=== PATIENT | female | born 2000 | race Caucasian/White ===

== ENCOUNTER → 2024-06-16 | Outpatient (CLI) | payer BC, SELFPAY ==
[2024-06-16 17:40] LABS: Mono Screen Negative (Negative)
== END | disposition home or self-care (01) ==
LOC: COPL 16:23
PROVIDERS: PCP Physician Assistant; Referring Provider Physician Assistant; Visit Provider Physician Assistant
DX: J02.9 Acute pharyngitis, unspecified (principal)
CPT/HCPCS: 36415; 86308

== ENCOUNTER → 2024-07-08 | Outpatient (CLI) | payer BC, SELFPAY ==
--- NOTE | 2024-07-08 15:57 | XR_ITS ---
Exam: MRI knee without contrast, left Date and time of exam: July 08, 2024 1505 hours INDICATIONS: Medial anterior knee pain instability clicking in the joint stiffness swelling beginning 10 days ago after following office the left Technique: Multiple axial, coronal, and sagittal sections on the knee have been obtained. T2-Weighted sagittal, fat-suppressed images, TR 3,500, TE 62, T2 weighted coronal fat-saturated images, TR 3,500, TE 62 Proton density sagittal sections, TR 1800, TE 31. T-1 weighted coronal images, TR 524, TE 13.0 Findings: Medial meniscus anterior horn intact. Medial meniscus, body is intact. Posterior horn medial meniscus suspicious for meniscocapsular separation. Lateral meniscus anterior horn is intact Lateral meniscus, body is intact Posterior horn lateral meniscus is intact Anterior cruciate ligament mild sprain Posterior cruciate ligament appears intact. Knee effusion is small. Quadriceps and patellar tendons appear intact. There is no evidence of tendinosis. Inflammatory change or fracture of Hoffa's fat pad is not seen. Medial patellar facet demonstrates no thinning. Lateral patellar facet cartilage demonstrates no thinning. Trochlear cartilage demonstrates no thinning. Marrow signal abnormal, increased signal in the proximal medial tibial metaphyseal region, suspicious for microtrabecular fracture lines Medial collateral ligament appears intact. . Illiotibial band and fibular collateral ligament are intact. Biceps femoris tendons appear intact. Medial femoral condylar articular cartilage demonstrates no thinning. Lateral femoral condylar articular cartilage demonstratesno thinning. Tibial plateau cartilage demonstrates no thinning. Impression: Recommend CT scan of the knee without contrast follow-up to confirm microtrabecular fracture lines involving the proximal medial tibial metaphyseal region Mild sprain anterior cruciate ligament Suspicious for meniscocapsular separation posterior horn medial meniscus
== END | disposition home or self-care (01) ==
PROVIDERS: PCP Nurse Practitioner Family; Referring Provider Nurse Practitioner Family; Visit Provider Nurse Practitioner Family
DX: S82.292A Other fracture of shaft of left tibia, initial encounter for closed fracture (principal); S83.512A Sprain of anterior cruciate ligament of left knee, initial encounter; X58.XXXA Exposure to other specified factors, initial encounter
CPT/HCPCS: 73721

== ENCOUNTER 2024-07-25 08:28 | Outpatient (AMB) | payer BC, SELFPAY ==
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
[2024-07-25 08:37] VITALS: BP 97/66; PULSE 78; RESP 16; TEMP 36.6; O2SAT 97; BMI 27.3
== END 2024-07-25 09:13 | disposition home or self-care (01) ==
PROVIDERS: PCP Physician Assistant; Referring Provider Physician Assistant; Supervising Provider Orthopaedic Surgery Adult Reconstructive Orthopaedic Surgery; Visit Provider Orthopaedic Surgery Adult Reconstructive Orthopaedic Surgery
DX: S83.242A Other tear of medial meniscus, current injury, left knee, initial encounter (principal); V00.328A Other snow-ski accident, initial encounter; Y93.23 Activity, snow (alpine) (downhill) skiing, snowboarding, sledding, tobogganing and snow tubing
CPT/HCPCS: 99203; G0463